=== PATIENT | male | born 1990 | race Caucasian/White ===

== ENCOUNTER 2021-02-28 08:22 | Emergency (ER) | payer OTHER ==
[~2021-02-28] VITALS: Ht 185.4 cm; Wt 81.6 kg
[2021-02-28] MEDS ORDERED: BALANCED SALT IRRIG SOLN 15 ML IO ONE (08:23)
[2021-02-28] MEDS ORDERED: FLUORESCEIN SODIUM 1 MG OPHTHALMIC STRIP OP ONE (08:23)
[2021-02-28] MEDS ORDERED: TETRACAINE (PONTOCAINE) TOPICAL 30 ML SOLUTION TP ONE (08:23)
[2021-02-28 08:29] VITALS: BP_SYST 129
--- NOTE | 2021-02-28 08:30 | NUR ---
Patient to ER bed 7 to gown for evaluation. Side rails up.
--- NOTE | 2021-02-28 08:32 | NUR ---
Pt came into ER with complaint of right eye pain 02/19 X1day. Pt reports his 2 year old son accidentaly poked him in the eye last night and he woke up and could nto open his eye. Pt presenting with red right eye and unable to keep right eyeopen for more than 5 seconds. Pt resting in [facility].
--- NOTE | 2021-02-28 08:33 | NUR ---
ER at bedside examining patient.
--- NOTE | 2021-02-28 08:38 | NUR ---
Dr. Bautista performing eye exam at bedside.
--- NOTE | 2021-02-28 08:39 | NUR ---
Right eye irrigated with sterile irrigating eye solution. Pt tolerated well.
[2021-02-28] MEDS ORDERED: PROPARACAINE (OPTHANINE 0.5%) 15 ML DROPS OP ONE (08:45)
[2021-02-28] MEDS ORDERED: NEOSEYEO OP (08:56)
[2021-02-28] MEDS ORDERED: IBUP-1969 PO (08:56)
--- NOTE | 2021-02-28 09:11 | NUR ---
Patient given written and verbal discharge instructions and verbalizes understanding. ER Dr. Bautista discussed with patient the results and treatment provided. Patient in stable condition. ID arm band removed. Rx of Ibuprofen and Ophthalmic Neosporin given. Patient educated on pain management and to follow up with PMD. Pain Scale 1. Opportunity for questions provided and answered. Medication side effect fact sheet provided.
[2021-02-28 09:12] VITALS: BP_SYST 136
== END 2021-02-28 09:11 | disposition home or self-care (01) ==
LOC: SED 08:22
DX: S05.01XA Injury of conjunctiva and corneal abrasion without foreign body, right eye, initial encounter (principal); W51.XXXA Accidental striking against or bumped into by another person, initial encounter; Y93.89 Activity, other specified; Y92.89 Other specified places as the place of occurrence of the external cause; Y99.8 Other external cause status
CPT/HCPCS: 99283